=== PATIENT | male | born 1995 | race Caucasian/White ===

== ENCOUNTER 2020-07-01 21:34 | Emergency (ER) | payer OTHER ==
--- NOTE | 2020-07-01 23:17 | EDM.PDOC ---
ED HPI GENERAL MEDICAL PROBLEM - General Stated Complaint: KNEE PAIN Time Seen by Provider: 07/01/20 23:17 Source of Information: Reports: Patient History Limitations: Reports: No Limitations - History of Present Illness INITIAL COMMENTS - FREE TEXT/NARRATIVE: Patient comes emergency department today with complaints of an injury to his left knee. Earlier today while he was at training he was traversing the ground when his left foot got caught in some logs and he ended up twisting his knee. He did not fall from this. He is able to ambulate on it with minimal pain but he has quite a bit of pain when he tries to go up steps. He has not tried any for pain. He denies any paresthesias to his lower extremity. Denies any other injury. Left Knee Pain Score (Numeric/FACES): 7 - Related Data Allergies Allergy/AdvReac Type Severity Reaction Status Date / Time No Known Allergies Allergy Verified 07/01/20 23:27 Home Meds: Home Meds . [No Known Home Meds] 07/01/20 [History] Review of Systems - Review of Systems Review Of Systems: Comprehensive ROS is negative, except as noted in HPI. ED EXAM, GENERAL - Physical Exam Exam: See Below Exam Limited By: No Limitations General Appearance: Alert, WD/WN, No Apparent Distress Respiratory/Chest: No Respiratory Distress Cardiovascular: Normal Peripheral Pulses, Regular Rate, Rhythm Peripheral Pulses: 2+: Posterior Tibial (L), Posterior Tibial (R), Dorsalis Pedis (L), Dorsalis Pedis (R) GI/Abdominal: Normal Bowel Sounds, Soft Extremities: Normal Inspection (Right knee there is no swelling bruising ecchymosis or effusion. He has some tenderness on the anterior aspect of the patella. Normal patella slide. No crepitus. Negative anterior drawer Rashmi. Negative varus and valgus stress), Normal Range of Motion, Normal Capillary Refill Neurological: Alert, Oriented, CN II-XII Intact Course - Vital Signs Last Recorded V/S: Last Vital Signs Temp 97.0 F 07/01/20 23:20 Pulse 88 07/01/20 23:20 Resp 18 07/01/20 23:20 BP 138/77 07/01/20 23:20 Pulse Ox 98 07/01/20 23:20 - Radiology Interpretation Free Text/Narrative:: X-ray of the knee per radiology shows normal-appearing knee. There is no evidence of joint effusion. No evidence of acute fracture. - Re-Assessments/Exams Free Text/Narrative Re-Assessment/Exam: 07/02/20 02:48 The patient that this is most likely a soft tissue injury. There is no bony deformity at this time. We will place him in a knee immobilizer and crutches weightbearing as tolerated. If in a week he is not improving he should follow- up with primary care. He is comfortable with this and his questions were answered. Departure - Departure Time of Disposition: 00:21 Disposition: Home, Self-Care 01 Clinical Impression: Sprain of knee - Discharge Information Instructions: Crutch Use, Adult, [id number], RICE Therapy for Routine Care of Injuries, [id number], Knee Sprain, Adult, [id number], Pain Medicine Instructions, [id number] Referrals: PCP,None [Primary Care Provider] - Forms: ED Department Discharge Additional Instructions: Tylenol and or Ibuprofen as needed for pain. RICE therapy as per the discharge instruction sheet. Knee immobilizer and crutches. Weight bearing as tolerated to the point of no pain. Return to the ED if new or worsening symptoms. Follow up with PCP or ortho in 7 days if not improving sooner if worse. Sepsis Event Note (ED) - Focused Exam Vital Signs: Vital Signs Temp Pulse Resp BP Pulse Ox 07/01/20 23:20 97.0 F 88 18 138/77 98
--- NOTE | 2020-07-02 00:18 | CR ---
PROCEDURE INFORMATION: Exam: XR Left Knee Exam date and time: 07/01/2020 11:30 PM Age: 24 years old Clinical indication: Other: Twisted/pain; Additional info: Injured knee while traversing twisted. TECHNIQUE: Imaging protocol: XR Left knee. Views: 3 views. COMPARISON: No relevant prior studies available. FINDINGS: Bones/joints: The alignment of the joints is anatomic and the joint spaces are maintained. There is no evidence of acute fracture. There is no evidence of a joint effusion. Soft tissues: Unremarkable. IMPRESSION: Normal appearing knee.
== END 2020-07-02 00:45 | disposition home or self-care (01) ==
LOC: DL.ED 21:34
DX: S83.92XA Sprain of unspecified site of left knee, initial encounter (principal); W23.0XXA Caught, crushed, jammed, or pinched between moving objects, initial encounter
CPT/HCPCS: 73562-LT; 99282; 99283-25